=== PATIENT | female | born 1995 | race African-American/Black ===

== ENCOUNTER 2019-05-22 23:52 | Outpatient (CLI) | payer MEDICAID ==
[~2019-05-22] VITALS: Ht 160 cm; Wt 66.4 kg
--- NOTE | 2019-05-22 23:40 | NUR ---
G1L0. 38-1. Wheeled to LDR 4 with fiance. Clean gown on. EFM and TOCO explained and applied. Pt does not speak yi but her fiance is translatting for her. Pt states she has been kathryn since 1800 tonight, got in a hot bath and that helped with the pain but contractions returned and now are getting closer together. Denies leaking of fluids or vaginal bleeding. Reports good movment. SVE FT/50/-2. Plan of care explained and questions answered. 2355: at nurses station and reviews FHR strip, update on pts status. See physican notification. 0000: Plan of care explained to pt and fiance. Questions answered. Tylenol given per orders. Assessment completed. Call light within reach.
[2019-05-23] VITALS (7 sets, daily range): BP systolic 95–117; BP diastolic 52–74; PULSE 84–100; TEMP 97.4
[2019-05-23] MEDS ORDERED: PRENATAL MVI PO (00:05)
--- NOTE | 2019-05-23 02:02 | NUR ---
SVE unchanged. Plan of care explained to pt and . Pt continues breathing through contractions. 0206: updated on pts status. New orders received. See physican notification. 0300: Pt up to bathroom and emesis noted. 0308: SVE unchanged. Noemí RN check behind this RN same SVE. 0314: updated on pts status. New orders received. 0340: Terb explained and administered at this time. IV started and LR bolus infusing per orders. Plan of care explained to pt and fiance. Questions answered.
--- NOTE | 2019-05-23 04:35 | NUR ---
Pt states she is feeling much better after TERB, LR and zofran administered and states she is wanting to discharge home. SVE FT/50/-2. Plan of care explained to pt and fiance. Questions answered. 0437: updated and discharge orders received. See physican notification. 0440: Pt off monitors. 0455: Discharge instructions explained to pt and fiance and questions answered. Pt ambulatory off unit and home with fiance.
== END 2019-05-23 04:55 | disposition home or self-care (01) ==
LOC: LDRO 23:52
DX: O62.9 Abnormality of forces of labor, unspecified (principal); Z3A.38 38 weeks gestation of pregnancy
CPT/HCPCS: J2405; J3105; J7120

== ENCOUNTER 2019-05-30 22:27 | Inpatient (IN) | payer MEDICAID ==
[~2019-05-30] VITALS: Ht 160 cm; Wt 66.4 kg
[~2019-05-30 22:27] MED LIST: PRENATAL MVI PO
[2019-05-30 22:49] VITALS: BP 113/75; PULSE 88; TEMP 98
[2019-05-31] VITALS (51 sets, daily range): BP systolic 89–156; BP diastolic 44–83; PULSE 65–125; TEMP 97.9–98.6
[2019-05-31 00:43] LABS: BASO % 0.3 % (0.0-2.0); EOS # 0.1 (0.0-0.7); EOS % 0.5 % (0-4.0); GRAN # 5.9 (1.4-6.5); GRAN % 63.8 % (42.2-75.2); HEMATOCRIT 35.3 % (37.0-47.0); HEMOGLOBIN 11.3 g/dl (12.5-16.0); LYMPH # 2.4 (1.2-3.4); LYMPH % 25.8 % (20.0-51.0); MEAN CELL VOLUME 81 fl (80.0-100.0); MEAN CORPUSCULAR HEMOGLOBIN 26 pg (27.0-31.0); MEAN CORPUSCULAR HGB CONC 32 g/dl (33.0-37.0); MEAN PLATELET VOLUME 10.7 fl (7.4-10.4); MONO # 0.8 (0.1-0.6); MONO % 9.1 % (1.7-9.3); PLATELET COUNT 216 K/mm3 (130-400); RED BLOOD COUNT 4.37 M/mm3 (4.10-5.30)
[2019-06-01 01:10] VITALS: BP 104/57; PULSE 98; TEMP 97.9
[2019-06-01 05:00] VITALS: BP 95/58; PULSE 91; TEMP 97.9
[2019-06-01] MEDS ORDERED: IBU600 MG PO (09:16)
[2019-06-01 21:00] VITALS: BP 108/65; PULSE 85; TEMP 97.6
[2019-06-02 08:00] VITALS: BP 108/64; PULSE 77; TEMP 98.3
== END 2019-06-02 13:10 | disposition home or self-care (01) | DRG 807 ==
LOC: LDRO 22:27 → LDR 23:51 → OB 23:51
PROVIDERS: Obstetrics & Gynecology; ADMIT Obstetrics & Gynecology
PROC: 10E0XZZ Delivery of Products of Conception, External Approach (ICD-10-PCS; principal; 2019-05-31)
PROC: 0UQMXZZ Repair Vulva, External Approach (ICD-10-PCS; 2019-05-31)
DX: O99.824 Streptococcus B carrier state complicating childbirth (principal); Z37.0 Single live birth; O76 Abnormality in fetal heart rate and rhythm complicating labor and delivery; O70.0 First degree perineal laceration during delivery; Z3A.39 39 weeks gestation of pregnancy
CPT/HCPCS: J2540; J2590; J7120

== ENCOUNTER 2020-04-22 10:24 | Emergency (ER) | payer MEDICAID ==
[~2020-04-22] VITALS: Ht 160 cm; Wt 55.9 kg
[~2020-04-22 10:24] MED LIST changes: +IBU600 MG PO
[2020-04-22 11:15] LABS: COLLECTION METHOD CLEAN CATCH
[2020-04-22 11:28] LABS: MUCOUS Present /lpf; PH 6 (5-8); SQUAMOUS EPITHELIAL 0-2 /hpf; URINE APPEARANCE Clear; URINE BACTERIA Rare /hpf; URINE BILIRUBIN Negative (NEGATIVE); URINE BLOOD Negative (NEGATIVE); URINE COLOR Yellow; URINE GLUCOSE Negative (NEGATIVE); URINE KETONE Negative (NEGATIVE); URINE LEUKOCYTE ESTERASE Negative (NEGATIVE); URINE NITRATE Negative (NEGATIVE); URINE PROTEIN(semi-quant) Negative (NEGATIVE); URINE RBC 0-2 /hpf; URINE UROBILINOGEN Negative (NEGATIVE)
[2020-04-22 11:30] LABS: ALBUMIN 4.4 gm/dL (3.5-5.0); BILIRUBIN,TOTAL 0.9 mg/dL (0.0-1.0); CALCIUM 9.3 mg/dL (8.4-10.2); CREATININE, serum 0.65 (0.52-1.25); POTASSIUM 3.9 mmol/L (3.4-5.0)
[2020-04-22 12:09] LABS: BASO % 0.5 % (0.0-2.0); EOS % 0.3 % (0-4.0); GRAN # 3.5 (1.4-6.5); GRAN % 55.5 % (42.2-75.2); HEMATOCRIT 37.8 % (37.0-47.0); HEMOGLOBIN 12.2 g/dl (12.5-16.0); LYMPH # 2.3 (1.2-3.4); LYMPH % 37.1 % (20.0-51.0); MEAN CELL VOLUME 84 fl (80.0-100.0); MEAN CORPUSCULAR HEMOGLOBIN 27 pg (27.0-31.0); MEAN CORPUSCULAR HGB CONC 32 g/dl (33.0-37.0); MEAN PLATELET VOLUME 10.8 fl (7.4-10.4); MONO # 0.4 (0.1-0.6); MONO % 6.4 % (1.7-9.3); PLATELET COUNT 231 K/mm3 (130-400); REDCELL DISTRIBUTION WIDTH-CV 14.7 % (11.5-14.5)
[2020-04-22 14:40] VITALS: BP 128/67; PULSE 88; TEMP 97.7
== END 2020-04-22 14:41 | disposition home or self-care (01) ==
LOC: COL.ER 10:24
PROVIDERS: Emergency Medicine; Nurse Practitioner
DX: O26.891 Other specified pregnancy related conditions, first trimester (principal); Z3A.00 Weeks of gestation of pregnancy not specified
CPT/HCPCS: J3010; J7030